=== PATIENT | male | born 1995 | race Caucasian/White ===

== ENCOUNTER 2023-09-20 09:47 | Emergency (ER) | payer MEDICAID ==
[~2023-09-20] VITALS: Ht 182.9 cm; Wt 90.7 kg
[2023-09-20 10:05] VITALS: BP_SYST 137; PULSE 85; RESP 18; TEMP 98.3; O2SAT 98
[2023-09-20] MEDS ORDERED: SULF15DR6 EACH EYE (10:16)
== END 2023-09-20 10:31 | disposition home or self-care (01) ==
LOC: SED 09:47
DX: H00.012 Hordeolum externum right lower eyelid (principal)
CPT/HCPCS: 99283

== ENCOUNTER 2023-10-15 08:11 | Emergency (ER) | payer MEDICAID ==
[~2023-10-15] VITALS: Ht 182.9 cm; Wt 90.7 kg
[~2023-10-15 08:11] MED LIST: DIPH25CA83 PO; PSEU30TA36 PO; SULF15DR6 EACH EYE
[2023-10-15 08:14] VITALS: PULSE 60; RESP 18; TEMP 97.6; O2SAT 99
[2023-10-15] MEDS: LIDOCAINE 1% 10 MG/ML, 20 ML MDV INJ ONE (08:48)
[2023-10-15] MEDS ORDERED: NEOM30OI34 TP (09:01)
[2023-10-15 09:05] VITALS: PULSE 68; RESP 22
== END 2023-10-15 09:06 | disposition home or self-care (01) ==
LOC: SED 08:11
DX: L60.0 Ingrowing nail (principal); L03.032 Cellulitis of left toe; Z79.899 Other long term (current) drug therapy; Z79.2 Long term (current) use of antibiotics
CPT/HCPCS: 99284